=== PATIENT | male | born 1965 | race Caucasian/White ===

== ENCOUNTER 2018-11-21 21:29 | Emergency (ER) | payer OTHER ==
[~2018-11-21] VITALS: Ht 182.9 cm; Wt 138.3 kg
[2018-11-21] MEDS ORDERED: DIOVAN160 MG PO (21:56)
[2018-11-21] MEDS ORDERED: KAPSPARGO SPRIN25 MG PO (21:57)
[2018-11-21] MEDS ORDERED: KEFLEX500 M1 PO (23:03)
[2018-11-21 23:19] VITALS: BP 139/95
== END 2018-11-21 23:21 | disposition home or self-care (01) ==
LOC: M.ERS 21:29
DX: S40.262A Insect bite (nonvenomous) of left shoulder, initial encounter (principal); S20.469A Insect bite (nonvenomous) of unspecified back wall of thorax, initial encounter; I10 Essential (primary) hypertension; Z96.653 Presence of artificial knee joint, bilateral; W57.XXXA Bitten or stung by nonvenomous insect and other nonvenomous arthropods, initial encounter; Y92.89 Other specified places as the place of occurrence of the external cause; Y93.89 Activity, other specified; Y99.8 Other external cause status